=== PATIENT | female | born 1960 | race Caucasian/White ===

== ENCOUNTER 2022-11-18 02:29 | Emergency (ER) | payer OTHER ==
[2022-11-18] MEDS ORDERED: Sodium Chloride 0.9% 10 ML Syringe FLUSH PRN (02:54)
[2022-11-18] MEDS ORDERED: Potassium Chloride 20 MEQ Tab.ER PO ONE (04:21)
== END 2022-11-18 04:39 | disposition home or self-care (01) ==
LOC: JD.ED 02:29
DX: R00.2 Palpitations (principal); E87.6 Hypokalemia; Z88.0 Allergy status to penicillin; Z79.82 Long term (current) use of aspirin; Z79.02 Long term (current) use of antithrombotics/antiplatelets; Z79.899 Other long term (current) drug therapy; Z95.0 Presence of cardiac pacemaker
CPT/HCPCS: 36415; 71045; 71045-26; 80053; 83735; 84443; 84484; 85025; 85379; 93005; 93010; 99284; 99285; A9270-GY; J3490